=== PATIENT | female | born 1970 | race Caucasian/White ===

== ENCOUNTER 2020-01-11 09:36 | Outpatient (REF) | payer MEDICAID, SELFPAY ==
--- NOTE | 2020-01-11 09:49 | XR_ITS ---
EXAMINATION: XR THORACOLUMBAR SPINE CLINICAL INFORMATION: Pain in thoracic spine. COMPARISON: Cervical spine dated 01/12/12. TECHNIQUE: AP and lateral views of the thoracic spine were obtained with a swimmer's view. FINDINGS: There is marked disc space narrowing at T9-T10 without significant osteophytosis. Mild spondylosis is seen at several levels in the upper thoracic spine with mild disc space narrowing and mild marginal osteophytosis. Alignment is normal. The paravertebral soft tissues are normal. Prominent degenerative changes are seen in the mid and lower cervical spine with progression from the prior examination. XR/XR thoracic spine 2V IMPRESSION: 1. Severe disc space narrowing T9-T10. Normal alignment. 2. Mild spondylosis in the upper thoracic spine. 3. Prominent degenerative changes in the cervical spine with interval progression.
== END 2020-01-11 09:37 | disposition home or self-care (01) ==
LOC: HO.XRAY 09:36
PROVIDERS: PCP Internal Medicine; Visit Provider Internal Medicine
DX: M54.6 Pain in thoracic spine (principal)
CPT/HCPCS: 72070

== ENCOUNTER 2020-02-28 19:26 | Outpatient (REF) | payer MEDICAID, SELFPAY | END 2020-02-28 19:27 | disposition home or self-care (01) | LOC: HO.MRI 19:26 | PROVIDERS: Visit Provider Internal Medicine | DX: Z13.89 Encounter for screening for other disorder (principal) ==

== ENCOUNTER 2020-06-10 10:39 | Outpatient (REF) | payer MEDICAID, SELFPAY ==
--- NOTE | ~2020-06-10 | XR_ITS ---
EXAMINATION: XR HAND, LEFT CLINICAL INFORMATION: Pain COMPARISON: None TECHNIQUE: PA, and bilateral oblique views of the left hand, and a lateral view of the second digit. FINDINGS: Marked soft tissue swelling about the second proximal interphalangeal joint and proximal phalanx. There is focal cortical destruction along the radial aspect of the second middle phalangeal base. No additional erosive changes are evident. No fractures or dislocation. XR/XR hand LT min 3V IMPRESSION: There is an erosion along the radial aspect of the second middle phalangeal base, radial aspect with overlying soft tissue swelling. The erosion shows overhanging edges. Consider gout.
== END 2020-06-10 10:40 | disposition home or self-care (01) ==
LOC: HO.HOSX 10:39
PROVIDERS: PCP Internal Medicine; Visit Provider Orthopaedic Surgery
DX: M79.642 Pain in left hand (principal); M00.9 Pyogenic arthritis, unspecified
CPT/HCPCS: 73130; 99202

== ENCOUNTER 2021-06-10 17:00 | Outpatient (RCR) | payer MEDICAID, SELFPAY | END 2021-06-15 17:36 | disposition home or self-care (01) | LOC: HO.PT 17:00 | PROVIDERS: PCP Internal Medicine; Visit Provider Internal Medicine | DX: M25.511 Pain in right shoulder (principal) | CPT/HCPCS: 97110; 97140; 97161 ==

== ENCOUNTER 2022-08-23 09:37 | Outpatient (REF) | payer MEDICAID, SELFPAY ==
[2022-08-23 14:34] LABS: MANUAL DIFF FLAG NO
[2022-08-23 14:40] LABS: Basophils Percent Auto 0.6 % (0-2); Eosinophils Absolute Auto 0.1 X10*3/uL (0.0-0.4); Eosinophils Percent Auto 1.4 % (0-4); Hematocrit 42.8 % (37.0-47.0); Hemoglobin 14.4 g/dl (12.0-16.0); Imm Gran Abs Auto 0.01 X10*3/uL (0.00-0.03); Imm Gran Pct Auto 0.2 % (0.0-0.4); Lymphocytes Absolute Auto 2.9 X10*3/uL (1.2-4.9); Lymphocytes Percent Auto 56.2 % (20-40); Mean Corpuscular HGB Conc 33.6 g/dl (31.0-35.0); Mean Corpuscular Hemoglobin 30.4 pg (27.0-33.0); Mean Corpuscular Volume 90.5 fL (80.0-98.0); Mean Platelet Volume 11.4 fL (9.4-12.3); Monocytes Absolute Auto 0.4 X10*3/uL (0.1-1.2); Monocytes Percent Auto 6.9 % (2-11); Neutrophils Absolute Auto 1.8 x10*3/uL (2.0-8.3); Neutrophils Percent Auto 34.7 % (45-73); Platelet Count 122 X10*3/uL (160-400); Red Blood Count 4.73 X10*6/uL (4.20-5.50); Red Cell Distribution Width 13.1 % (11.0-16.0); White Blood Count 5.2 X10*3/uL (4.8-10.8)
[2022-08-23 15:28] LABS: Alanine Aminotransferase 21 U/L (0-31); Albumin Level 4.3 g/dL (3.5-5.0); Alkaline Phosphatase 62 U/L (39-117); Anion Gap 13 (12-20); Aspartate Amino Transferase 22 U/L (5-31); Bilirubin Total 0.6 mg/dL (0.0-1.0); Blood Urea Nitrogen 15 mg/dL (9-16); Calcium 9.4 mg/dL (8.4-10.2); Carbon Dioxide 25 mmol/L (22-29); Chloride 109 mmol/L (96-108); Estimated Glomerular Filt Rate > 60; Glucose Fasting 72 mg/dL (60-99); Potassium 3.7 mmol/L (3.3-5.1); Sodium 143 mmol/L (135-145); Total Protein 7.2 g/dL (6.5-8.0)
[2022-08-23 15:43] LABS: TSH reflex Free T4 1.58 uIU/mL (0.32-4.0)
[2022-08-28 19:19] LABS: HIV RNA PCR Qn Copies Not Detected Copies/mL; HIV RNA PCR Qn Log Copies Not Detected Log cps/mL
== END 2022-08-23 09:38 | disposition home or self-care (01) ==
LOC: HO.CHCLDS 09:37
PROVIDERS: Visit Provider Internal Medicine
DX: Z11.4 Encounter for screening for human immunodeficiency virus [HIV] (principal); F41.9 Anxiety disorder, unspecified
CPT/HCPCS: 36415; 80053; 84443; 85025; 87536; 87900; 87906

== ENCOUNTER 2022-10-25 19:53 | Outpatient (REF) | payer MEDICAID, SELFPAY ==
[2022-10-28 02:59] LABS: HPV mRNA E6/E7 rflx Not Detected (Not Detected)
== END 2022-10-25 19:54 | disposition home or self-care (01) ==
LOC: HO.CHCLNP 19:53
PROVIDERS: Visit Provider Advanced Practice Midwife
DX: Z12.4 Encounter for screening for malignant neoplasm of cervix (principal); Z11.51 Encounter for screening for human papillomavirus (HPV)
CPT/HCPCS: 87624; 88142

== ENCOUNTER 2023-07-13 07:40 | Emergency (ER) | payer MEDICAID, SELFPAY ==
--- NOTE | 2023-07-13 | ECG_ITS ---
Test Reason : CEEST PAIN Blood Pressure : / mmHG Vent. Rate : 077 BPM Atrial Rate : 077 BPM P-R Int : 146 ms QRS Dur : 090 ms QT Int : 412 ms P-R-T Axes : 073 049 040 degrees QTc Int : 466 ms Normal sinus rhythm Possible Left atrial enlargement Minimal voltage criteria for LVH, may be normal variant ( [employer] product ) Borderline ECG No previous ECGs available Referred By: Generic ED Physician Electronically Signed By:DAIJA ARCEO MD
--- NOTE | ~2023-07-13 | XR_ITS ---
EXAMINATION: XR CHEST CLINICAL INFORMATION: Left lower rib pain COMPARISON: Thoracic spine 01/11/2020 TECHNIQUE: 2 views of the chest were obtained. FINDINGS: Previously seen marked narrowing of the T9 and T10 disc space appears to have progressed to fusion. Some mild other degenerative changes are present in the thoracic spine. There is minimal patchy density seen in the right midlung laterally. No other significant abnormality is noted involving the heart, lungs, mediastinum or soft tissues. XR/XR chest 2V IMPRESSION: 1. Minimal patchy density right midlung laterally. 2. Degenerative changes in the spine with fusion of T9 and T10.
[2023-07-13 07:51] VITALS: BP 160/96; PULSE 84; RESP 18; TEMP 36.1; O2SAT 95; BMI 20.7
[2023-07-13 08:37] LABS: Basophils Percent Auto 0.2 % (0-2); Eosinophils Absolute Auto 0.1 X10*3/uL (0.0-0.4); Hematocrit 38.4 % (37.0-47.0); Hemoglobin 13.3 g/dl (12.0-16.0); Imm Gran Abs Auto 0.01 X10*3/uL (0.00-0.03); Imm Gran Pct Auto 0.2 % (0.0-0.4); Lymphocytes Absolute Auto 3.6 X10*3/uL (1.2-4.9); Lymphocytes Percent Auto 61.8 % (20-40); MANUAL DIFF FLAG SCAN; Mean Corpuscular HGB Conc 34.6 g/dl (31.0-35.0); Mean Corpuscular Volume 86.5 fL (80.0-98.0); Mean Platelet Volume 10.8 fL (9.4-12.3); Monocytes Absolute Auto 0.3 X10*3/uL (0.1-1.2); Monocytes Percent Auto 4.9 % (2-11); Neutrophils Absolute Auto 1.9 x10*3/uL (2.0-8.3); Neutrophils Percent Auto 31.9 % (45-73); Platelet Count 116 X10*3/uL (160-400); Red Blood Count 4.44 X10*6/uL (4.20-5.50); Red Cell Distribution Width 13.2 % (11.0-16.0); SCAN SMEAR FLAG 1; White Blood Count 5.9 X10*3/uL (4.8-10.8)
--- NOTE | 2023-07-13 08:39 | ED.CHESTPAIN ---
HPI - Chest Pain General Chief Complaint: Chest Pain Stated Complaint: Cramping rib cage area Time Seen by Provider: 07/13/23 08:30 Source: patient Mode of arrival: ambulatory Limitations: no limitations History of Present Illness ED Provider: Dr. 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 She presents to emergency department complaining of sharp left lower rib cage started 2 days after sweeping and cleaning a friend's house worse with movement or cough. Patient has had no falls or trauma denies any shortness of breath did take ibuprofen she denies any cough or fever she was worried that she may have pneumonia so she came in for evaluation Related Data Home Medications ?Medication ?Instructions ?Recorded ?Confirmed trazodone 50 mg tablet 50 mg PO BEDTIME PRN 03/16/21 Previous Rx's ?Medication ?Instructions ?Recorded fluconazole 150 mg tablet 150 mg PO DAILY #1 tab 03/16/21 Allergies Allergy/AdvReac Type Severity Reaction Status Date / Time No Known Allergies Allergy Verified 07/13/23 07:57 Review of Systems Review of Systems: Review of systems: General: Patient denies any fever chills recent illness or falls Musculoskeletal: Denies back pain or body aches or other injuries HEENT: denies headache, runny nose, ear pain Respiratory: denies shortness of breath, cough Cardiovascular: no chest pain or palpitations : denies dysuria, frequency Abdomen: no nausea vomiting denies abdominal pain Extremities: no swelling, no pain Skin: no diaphoresis Yes all other systems are reviewed and are negative [facility] Social History Social History (Updated 06/10/20 @ 11:05 by GIORGI Rangel) Alcohol intake: never Advance Directives: No Advance Directives Information Provided: Yes Do you have a plan to hurt others: No Plan Current occupational status: unemployed Current occupation: right handed Physical Exam Vital Signs: Vital Signs: Last Vital Signs Temp 96.9 F 07/13/23 07:51 Pulse 84 07/13/23 07:51 Resp 18 07/13/23 07:51 BP 160/96 H 07/13/23 07:51 Pulse Ox 95 07/13/23 07:51 O2 Del Method Room Air 07/13/23 07:51 BMI result Body Mass Index 20.7 General: Well-appearing well-nourished in no signs of distress HEENT: Normocephalic atraumatic Neck: No signs of JVD, no masses no tenderness or lymphadenopathy Cardiovascular: Regular rate and rhythm Respiratory: Clear to auscultation bilaterally Abdomen: Soft nontender no masses Extremities: Normal pedal pulses no signs of edema Skin: Dry warm no rashes Back: No tenderness full ROM Medical Decision Making Medical Decision Making MDM Narrative: Pain is reproduced sounds very musculoskeletal I do not think there is a rib fracture think the patient would benefit from incentive spirometry Tylenol ibuprofen Differential Diagnosis Differential Diagnoses: The differential diagnosis associated with the presentation includes Rib pain rib pain rib fracture Lab Data 07/13/23 08:17 07/13/23 08:17 Labs: Lab Results 07/13/23 Range/Units 08:17 WBC 5.9 (4.8-10.8) X10*3/uL RBC 4.44 (4.20-5.50) X10*6/uL Hgb 13.3 (12.0-16.0) g/dl Hct 38.4 (37.0-47.0) % MCV 86.5 (80.0-98.0) fL MCH 30.0 (27.0-33.0) pg MCHC 34.6 (31.0-35.0) g/dl RDW 13.2 (11.0-16.0) % Plt Count 116 L (160-400) X10*3/uL MPV 10.8 (9.4-12.3) fL Sodium 141 (135-145) mmol/L Potassium 3.7 (3.3-5.1) mmol/L Chloride 108 (96-108) mmol/L Carbon Dioxide 25 (22-29) mmol/L Anion Gap 12 (12-20) BUN 17 H (9-16) mg/dL Creatinine 0.70 (0.5-1.4) mg/dL Estim Creat Clear Calc 77.7 Estimated GFR > 60 Random Glucose 83 (60-115) mg/dL Calcium 9.3 (8.4-10.2) mg/dL Total Bilirubin 0.5 (0.0-1.0) mg/dL AST 23 (5-31) U/L ALT 22 (0-31) U/L Alkaline Phosphatase 60 (39-117) U/L Troponin I High Sens < 2.7 (<3.5-17.0) ng/L Total Protein 7.1 (6.5-8.0) g/dL Albumin 4.3 (3.5-5.0) g/dL Independent Interpretation I performed an independent interpretation of an: Plain X-Ray Interpretation: No acute intrathoracic process Discharge Plan Discharge Clinical Impression: Rib pain on left side Patient Disposition: Home, Self-Care Instructions: Chest Pain (DC) Additional Instructions: Your seen in the emergency department for left-sided rib pain. You had an x-ray or given Toradol and Tylenol. X-ray was normal there is no signs of pneumonia please call follow up with Prescriptions: No Action trazodone 50 mg tablet 50 mg PO BEDTIME PRN fluconazole 150 mg tablet 150 mg PO DAILY Qty: 1 1RF Stand Alone Forms: Work/School Release Print Language: Beninese
[2023-07-13 08:41] LABS: Alanine Aminotransferase 22 U/L (0-31); Albumin Level 4.3 g/dL (3.5-5.0); Alkaline Phosphatase 60 U/L (39-117); Anion Gap 12 (12-20); Aspartate Amino Transferase 23 U/L (5-31); Bilirubin Total 0.5 mg/dL (0.0-1.0); Blood Urea Nitrogen 17 mg/dL (9-16); Calcium 9.3 mg/dL (8.4-10.2); Carbon Dioxide 25 mmol/L (22-29); Chloride 108 mmol/L (96-108); Creatinine Clr Calc Pharmacy 77.7; Estimated Glomerular Filt Rate > 60; Glucose Random 83 mg/dL (60-115); Potassium 3.7 mmol/L (3.3-5.1); Sodium 141 mmol/L (135-145); Total Protein 7.1 g/dL (6.5-8.0)
[2023-07-13 08:56] LABS: Troponin-I High Sensitivity < 2.7 ng/L (<3.5-17.0)
[2023-07-13] MEDS: Ketorolac Tromethamine 30 MG/ML VIAL 15 MG IM (09:12)
[2023-07-13] MEDS: Acetaminophen 325 MG TABLET 650 MG PO (09:13)
[2023-07-13 09:19] VITALS: BP 160/96; PULSE 84; RESP 18; TEMP 36.1; O2SAT 95
[2023-07-13 09:57] LABS: SLIDE REVIEW VERIFIED
== END 2023-07-13 09:20 | disposition home or self-care (01) ==
PROVIDERS: Emergency Provider Student in an Organized Health Care Education/Training Program; PCP Internal Medicine
DX: R07.89 Other chest pain (principal); R07.81 Pleurodynia; Z79.899 Other long term (current) drug therapy
CPT/HCPCS: 36415; 71046; 80053; 84484; 85025; 93005; 96372; 99284; 99285; J1885

== ENCOUNTER → 2023-07-13 07:45 | Outpatient (BNV) | payer MEDICAID, SELFPAY | PROVIDERS: Emergency Provider Student in an Organized Health Care Education/Training Program; PCP Internal Medicine; Visit Provider Internal Medicine Cardiovascular Disease | DX: R07.9 Chest pain, unspecified (principal) | CPT/HCPCS: 93010 ==

== ENCOUNTER 2023-07-31 16:30 | Outpatient (REF) | payer MEDICAID, SELFPAY ==
[2023-08-01 02:15] LABS: CT PCR NOT DETECTED (Not Detect.); NG PCR NOT DETECTED (Not Detect.)
[2023-08-01 10:40] LABS: Bacterial Vaginosis PCR POSITIVE (Negative); Candida Group PCR NOT DETECTED (Not Detect); Candida glab krusei PCR NOT DETECTED (Not Detect); Trichomonas vaginalis PCR NOT DETECTED (Not Detect)
== END 2023-07-31 16:31 | disposition home or self-care (01) ==
LOC: HO.CHCLNP 16:30
PROVIDERS: Visit Provider Family Medicine
DX: N76.0 Acute vaginitis (principal); Z20.2 Contact with and (suspected) exposure to infections with a predominantly sexual mode of transmission
CPT/HCPCS: 0352U; 0353U